=== PATIENT | female | born 1955 | race Caucasian/White ===

== ENCOUNTER 2022-08-21 08:46 | Inpatient (IN) | payer MEDICARE, BC ==
[~2022-08-21 08:46] MED LIST: Bupivacaine 0.5%/EPINEPHrine 1:200,000 50 ML MDV ONE
[2022-08-21] MEDS: Lactated Ringers 1,000 ML IV SCH ×2 (09:10→21:08)
[2022-08-21] MEDS ORDERED: Dexamethasone 4 MG/ML SDV ONE (09:14)
[2022-08-21] MEDS ORDERED: Succinylcholine 200 MG/10 ML MDV ONE (09:14)
[2022-08-21] MEDS ORDERED: Rocuronium 50 MG/5 ML Vial ONE (09:14)
[2022-08-21] MEDS ORDERED: Neostigmine Methylsulfate 1 MG/ML 5 ML Syringe ONE (09:14)
[2022-08-21] MEDS ORDERED: Ondansetron 4 MG/2 ML SDV ONE (09:14)
[2022-08-21] MEDS ORDERED: Glycopyrrolate 0.2 MG/ML 5 ML MDV ONE (09:14)
[2022-08-21] MEDS ORDERED: Propofol 200 MG/20 ML SDV ONE (09:14)
[2022-08-21] MEDS ORDERED: fentaNYL 250 MCG/5 ML SDV ONE ×2 (09:16→12:52)
[2022-08-21] MEDS ORDERED: ceFAZolin 2 GM in Premix Bag 1 BAG IV ONE (09:30)
[2022-08-21] MEDS ORDERED: Acetaminophen 500 MG Tab PO ONE (09:30)
[2022-08-21] MEDS ORDERED: Labetalol 20 MG/4 ML Syringe ONE (12:32)
[2022-08-21] MEDS ORDERED: Lactated Ringers 1,000 ML ONE (13:34)
[2022-08-21] MEDS ORDERED: hydrALAZINE 20 MG/ML SDV ONE (14:55)
[2022-08-21] MEDS ORDERED: Acetaminophen/HYDROcodone 325-5 MG Tab PO PRN (15:02)
[2022-08-21] MEDS ORDERED: Ondansetron 4 MG/2 ML SDV IVPUSH ONE (15:17)
[2022-08-21] MEDS ORDERED: Prochlorperazine 10 MG/2 ML SDV IVPUSH ONE (16:43)
[2022-08-21] MEDS ORDERED: Scopolamine 1.5 MG Transdermal Patch TOP SCH (17:00)
[2022-08-21] MEDS ORDERED: Prochlorperazine 10 MG/2 ML SDV IVPUSH PRN (20:02)
[2022-08-21] MEDS: Ondansetron 4 MG/2 ML SDV IVPUSH PRN (21:16)
[2022-08-22 04:20] LABS: HEMATOCRIT 41.8 % (34.3-46.0); HEMOGLOBIN 13.9 g/dL (11.2-15.5); MEAN CORPUSCULAR HEMOGLOBIN 28.4 pg (31.6-35.5); MEAN CORPUSCULAR HGB CONC 33.3 g/dL (31.6-35.5); MEAN CORPUSCULAR VOLUME 85.5 fL (81.4-99.0); RED BLOOD CELL COUNT 4.89 M/uL (3.77-5.24); WHITE BLOOD CELL COUNT,WBC 19.3 K/uL (3.2-11.0)
[2022-08-22 04:42] LABS: MAGNESIUM 1.8 mg/dL (1.8-2.4); PHOSPHORUS 3.8 mg/dL (2.5-4.9)
[2022-08-22 04:51] LABS: ALANINE AMINOTRANSFERASE,ALT 81 U/L (12-78); ALBUMIN 3.3 g/dL (3.4-5.0); ALKALINE PHOSPHATASE 65 U/L (46-116); ASPARTATE AMNIOTRANSFERASE,AST 64 U/L (15-37); BILIRUBIN TOTAL 0.7 mg/dL (0.2-1.0); BLOOD UREA NITROGEN,BUN 10 mg/dL (7-18); CALCIUM 8.4 mg/dL (8.5-10.1); CARBON DIOXIDE,CO2 29 mmol/L (21-32); CHLORIDE,CL 101 mmol/L (100-108); CREATININE 0.9 mg/dL (0.6-1.0); EST CRCL DRUG DOSING (CG) 44.17 mL/min; ESTIMATED GFR 71 mL/min (>60); GLUCOSE RANDOM 129 mg/dL (74-106); POTASSIUM,K 4.8 mmol/L (3.6-5.2); PROTEIN TOTAL,TP 6.6 g/dL (6.4-8.2); SODIUM,NA 137 mmol/L (140-148)
[2022-08-22 05:03] LABS: ANION GAP 11.8 mmol/L (5.0-14.0)
[2022-08-22] MEDS: Ondansetron 4 MG/2 ML SDV IVPUSH PRN ×2 (06:03→12:05)
[2022-08-22] MEDS: Lactated Ringers 1,000 ML IV SCH (07:29)
[2022-08-22] MEDS: Pantoprazole 40 MG Tab.CR PO SCH (07:32)
[2022-08-22] MEDS ORDERED: Enoxaparin 40 MG/0.4 ML Syringe SUBCUT SCH (09:15)
[2022-08-22] MEDS: Enoxaparin 30 MG/0.3 ML Syringe SUBCUT SCH (09:39)
[2022-08-22] MEDS: SCOPOLAMINE PATCH CHECK TOP SCH (09:39)
[2022-08-22] MEDS ORDERED: traZODone 50 MG Tab PO SCH (21:00)
[2022-08-23 04:14] LABS: HEMATOCRIT 42.8 % (34.3-46.0); HEMOGLOBIN 14.1 g/dL (11.2-15.5); MEAN CORPUSCULAR HEMOGLOBIN 28.5 pg (31.6-35.5); MEAN CORPUSCULAR HGB CONC 32.9 g/dL (31.6-35.5); MEAN CORPUSCULAR VOLUME 86.5 fL (81.4-99.0); RED BLOOD CELL COUNT 4.95 M/uL (3.77-5.24); WHITE BLOOD CELL COUNT,WBC 11.9 K/uL (3.2-11.0)
[2022-08-23 04:36] LABS: CALCIUM 8.7 mg/dL (8.5-10.1); CREATININE 0.9 mg/dL (0.6-1.0); EST CRCL DRUG DOSING (CG) 44.17 mL/min; MAGNESIUM 2.2 mg/dL (1.8-2.4); PHOSPHORUS 3.6 mg/dL (2.5-4.9); POTASSIUM,K 4.3 mmol/L (3.6-5.2)
[2022-08-23 05:06] LABS: ANION GAP 10.3 mmol/L (5.0-14.0)
[2022-08-23] MEDS: Pantoprazole 40 MG Tab.CR PO SCH (08:13)
[2022-08-23] MEDS: Enoxaparin 30 MG/0.3 ML Syringe SUBCUT SCH (08:13)
[2022-08-23] MEDS: SCOPOLAMINE PATCH CHECK TOP SCH (08:15)
== END 2022-08-23 10:25 | disposition home or self-care (01) | DRG 328 ==
LOC: JP.SDS 08:46 → JP.MS 08:57 → OBSVTOIN 08-22 08:57
PROVIDERS: ADMIT Student in an Organized Health Care Education/Training Program; ATTEND Student in an Organized Health Care Education/Training Program
PROC: 0BQT4ZZ Repair Diaphragm, Percutaneous Endoscopic Approach (ICD-10-PCS; principal; 2022-08-21)
PROC: 0DV44ZZ Restriction of Esophagogastric Junction, Percutaneous Endoscopic Approach (ICD-10-PCS; principal; 2022-08-21)
PROC: 8E0W4CZ Robotic Assisted Procedure of Trunk Region, Percutaneous Endoscopic Approach (ICD-10-PCS; 2022-08-21)
DX: K44.9 Diaphragmatic hernia without obstruction or gangrene (principal); R13.10 Dysphagia, unspecified; Z90.710 Acquired absence of both cervix and uterus; Z90.89 Acquired absence of other organs; R11.0 Nausea; Z79.899 Other long term (current) drug therapy; Z98.890 Other specified postprocedural states; Z87.891 Personal history of nicotine dependence
CPT/HCPCS: 36415; 80053; 83735; 84100; 85027; 96361 ×2; 96374; 96375; 96376 ×2; A9270 ×3; G0378 ×3; J0330; J0360; J0690; J0780 ×2; J1100; J2405 ×4; J2704; J2710; J3010 ×2; J3490 ×3; J7120 ×4; 80048; J1650